=== PATIENT | male | born 1950 | race Caucasian/White ===

== ENCOUNTER → 2017-10-18 | Outpatient (RCR) | payer MEDICARE, OTHER, SELFPAY | LOC: PT 10-02 12:52 | PROVIDERS: Visit Provider Orthopaedic Surgery | DX: M75.41 Impingement syndrome of right shoulder (principal) | CPT/HCPCS: G8984; G8985; G8986; 97014; 97016; 97110; 97161; G0283 ==

== ENCOUNTER → 2017-12-26 12:56 | Outpatient (CLI) | payer MEDICARE, OTHER, SELFPAY ==
--- NOTE | 2017-12-26 12:59 | MR_ITS ---
MR shoulder RT wo con HISTORY: Right shoulder pain, shoulder impingement, limited range of motion ITS.REASON: right shoulder pain ORDERING PHYSICIAN: Brannon Hopkins MD PATIENT AGE: 67 years COMPARISON: Radiograph of 06/14/2017 TECHNIQUE: Standard multiplanar multiecho sequences are performed without contrast. FINDINGS: Hypertrophic changes are present at the acromioclavicular joint with some mild spurring mostly superiorly. The subacromial space is well-preserved. There is increased T2 signal involving the supraspinatus and infraspinatus tendons with thickening of these tendons consistent with tendinopathy/tendinosis. There is irregularity involving the undersurface of the supraspinatus tendon which may indicate a partial tear. A full-thickness tear is not identified. There is a small amount fluid deep to the distal aspect of the supraspinatus tendon. Subcortical cystic changes are present at the greater tuberosity. No obvious labral tear. Fluid is present in bicipital tendon sheath posteriorly. There is tendinopathy/tendinosis of the subscapularis tendon. The teres minor tendon has an unremarkable appearance. IMPRESSION: 1. Tendinopathy/tendinosis of the supraspinatus, infraspinatus, and subscapularis tendons. 2. Irregularity along the undersurface of the supraspinatus tendon suggesting partial tear. A complete or full-thickness tear is not apparent. 3. Fluid within the bicipital tendon sheath consistent with tendinitis. 4. Osteoarthritic changes of the acromioclavicular joint. Subcortical cystic changes involving humeral head at the greater tuberosity. Small amount fluid is also present in the subcoracoid region consistent with bursitis.
== END ==
PROVIDERS: Family Provider Internal Medicine Adolescent Medicine; PCP Internal Medicine Adolescent Medicine; Visit Provider Orthopaedic Surgery
DX: M75.41 Impingement syndrome of right shoulder (principal)
CPT/HCPCS: 73221